=== PATIENT | female | born 1955 | race American Indian/Alaskan Native ===

== ENCOUNTER 2018-08-25 19:52 | Emergency (ER) | payer OTHER ==
[2018-08-25 20:52] VITALS: BP 149/76
--- NOTE | 2018-08-25 20:52 | Emergency Department Report ---
Chief Complaint: Extremity Problem,Nontraumatic Stated Complaint: POSS BUG BITE TO L LEG Time Seen by Provider: 08/25/18 20:49 - HPI History of Present Illness: states she has had a knot to her RLE for two weeks did not feel anything bite her has been using alcohol and anti-itch cream pt states it is not getting better no drainage no fever no PMHx no allergies to medications +smoker +drinker no drug use MSE screening note: Focused history and physical exam performed. ED Disposition for MSE Condition: Stable
--- NOTE | 2018-08-26 00:46 | Emergency Department Report ---
Abscess Boil HPI - HPI Chief Complaint: Extremity Problem,Nontraumatic Stated Complaint: POSS BUG BITE TO L LEG Time Seen by Provider: 08/25/18 20:49 Duration: >1 Week Location: Lower Extremity (left lower extremity) Severity: Mild History: Yes Pain, Yes Insect Bite, No Fever, No Purulent Drainage, No Numbness, No Foreign Body, No Previous History HPI: This is a 62-year-old Citizen Of [place] female represents to the emergency room with 2 abscesses to the left lower extremity for 2 weeks. Patient reports pain and itching for 2 weeks. She is applied that itching cream with no improvement of symptoms. Patient's states she thinks she got bit by an insect. Patient reports there were redness symptoms initially started which have resolved. She denies drainage, fever, swelling, numbness or tingling. Home Medications: Previous Rx's Medication Instructions Recorded Last Taken Type Diclofenac Dr [Voltaren Dr] 75 mg PO Q12H #60 tablet 04/10/13 Unknown Rx HYDROcodone/APAP 5-325 [Farrar 1 each PO Q6HR PRN #20 tablet 06/19/14 Unknown Rx 5-325 mg TAB] Ibuprofen [Motrin 800 MG tab] 800 mg PO Q8H PRN #30 tablet 06/19/14 Unknown Rx Nitrofurantoin Wilkinson/M-Cryst 100 mg PO Q12HR #14 capsule 06/19/14 Unknown Rx [Macrobid] Clindamycin [Clindamycin CAP] 300 mg PO Q8H #21 cap 08/26/18 Unknown Rx Ibuprofen [Motrin 600 MG tab] 600 mg PO Q8H PRN #20 tablet 08/26/18 Unknown Rx hydrOXYzine PAMOATE [Vistaril] 25 mg PO Q6HR PRN #15 capsule 08/26/18 Unknown Rx Allergies/Adverse Reactions: Allergies Allergy/AdvReac Type Severity Reaction Status Date / Time No Known Allergies Allergy Verified 04/10/13 07:47 ED Review of Systems ROS: Stated complaint: POSS BUG BITE TO L LEG Other details as noted in HPI Constitutional: denies: chills, fever Respiratory: denies: cough, shortness of breath, wheezing Cardiovascular: denies: chest pain, palpitations Gastrointestinal: denies: abdominal pain, nausea, diarrhea Musculoskeletal: denies: back pain, joint swelling, arthralgia Skin: lesions (left lower extremity abscesses). denies: rash Neurological: denies: headache, weakness, paresthesias Psychiatric: denies: anxiety, depression ED Past Medical Hx - Past Medical History Previous Medical History?: Yes Additional medical history: Chronic back pain - Surgical History Past Surgical History?: No - Social History Smoking Status: Current Every Day Smoker Substance Use Type: None - Medications Home Medications: Home Medications Medication Instructions Recorded Confirmed Last Taken Type Diclofenac Dr [Voltaren Dr] 75 mg PO Q12H #60 tablet 04/10/13 Unknown Rx HYDROcodone/APAP 5-325 [Farrar 1 each PO Q6HR PRN #20 tablet 06/19/14 Unknown Rx 5-325 mg TAB] Ibuprofen [Motrin 800 MG tab] 800 mg PO Q8H PRN #30 tablet 06/19/14 Unknown Rx Nitrofurantoin Wilkinson/M-Cryst 100 mg PO Q12HR #14 capsule 06/19/14 Unknown Rx [Macrobid] Clindamycin [Clindamycin CAP] 300 mg PO Q8H #21 cap 08/26/18 Unknown Rx Ibuprofen [Motrin 600 MG tab] 600 mg PO Q8H PRN #20 tablet 08/26/18 Unknown Rx hydrOXYzine PAMOATE [Vistaril] 25 mg PO Q6HR PRN #15 capsule 08/26/18 Unknown Rx ED Abscess Boil Physical Exam - Exam General: Vital signs noted. No distress. Alert and acting appropriately. Front/Back of Body, Lg (Color): 1 - Half centimeter nonfluctuant abscess to the left lateral tibia-fibula, tenderness, no erythema 2 - Less than half a centimeter nonfluctuant nodule to the left lateral distal tibia-fibula, tenderness, and surrounding erythema Size: 1 cm Exam: Yes Tenderness, Yes Surrounding Cellulites/Erythema, Yes Normal Neurologic Exam, Yes Normal Circulation, No Fluctuance, No Lymphangitis, No Crepitation, No Heart Murmur ED Course Vital Signs 08/25/18 20:50 Temperature 98.7 F Pulse Rate 97 H Respiratory 16 Rate Blood Pressure 149/76 O2 Sat by Pulse 100 Oximetry Critical care attestation.: If time is entered above; I have spent that time in minutes in the direct care of this critically ill patient, excluding procedure time. ED Medical Decision Making - Medical Decision Making Patient was examined by me. No past medical history. No acute signs of distress noted. No palpable cyst pockets of focal exam. I&D is not indicated. Discussed plan to start clindamycin, Vistaril, and ibuprofen with patient. Educated patient on follow up plan to have wound reassessed in 2-3 days. Patient agrees to ED plan of care. Discharged home and follow up with PCP in 2-3 days. ED Disposition Clinical Impression: Abscess Disposition: DC- TO HOME OR SELFCARE Is pt being admited?: No Does the pt Need Aspirin: No Condition: Stable Instructions: Abscess (ED) Additional Instructions: Complete full round of clindamycin antibiotic as prescribed. Follow up with PCP or ER in 2-3 days. Return to ER if foul smelling discharge, swelling, or severe pain to wound. Prescriptions: Clindamycin [Clindamycin CAP] 300 mg PO Q8H #21 cap Ibuprofen [Motrin 600 MG tab] 600 mg PO Q8H PRN #20 tablet PRN Reason: Pain hydrOXYzine PAMOATE [Vistaril] 25 mg PO Q6HR PRN #15 capsule PRN Reason: Itching Referrals: JUDSON COHEN MD [Primary Care Provider] - 3-5 Days [facility] [Outside] - 3-5 Days [facility] [Outside] - 3-5 Days Forms: Work/School Release Form(ED), Accompanied Note Time of Disposition: 00:50
== END 2018-08-26 00:55 | disposition home or self-care (01) ==
LOC: ED 19:52
DX: L02.416 Cutaneous abscess of left lower limb (principal); F17.200 Nicotine dependence, unspecified, uncomplicated
CPT/HCPCS: 99282